=== PATIENT | female | born 1985 | race Caucasian/White ===

== ENCOUNTER 2017-10-29 05:19 | Inpatient (IN) | payer MEDICAID ==
[~2017-10-29] VITALS: Ht 165.1 cm; Wt 105.2 kg
[2017-10-29] MEDS ORDERED: DEXT 5%/LR + PITOCIN 20UNITS/L 1,000 ML IV SCH ×2 (05:36→11:01)
[2017-10-29] MEDS ORDERED: PNV1TABL76 PO (05:39)
[2017-10-29] MEDS ORDERED: METHYLERGONOVINE MALEATE 0.2 MG/ML IM PRN (05:45)
[2017-10-29] MEDS ORDERED: CARBOPROST TROMETHAMINE 250 MCG/ML AMPUL IM PRN (05:45)
[2017-10-29] MEDS ORDERED: NALOXONE HCL 0.4 MG/ML 1ML VIAL IM PRN (05:45)
[2017-10-29 06:32] LABS: BASOPHILS % 0.3 % (0.0-2.0); EOSINOPHILS % 1.5 % (0.0-5.0); HEMATOCRIT. 40.2 % (36.0-48.0); HEMOGLOBIN. 13.7 g/dL (12.0-16.0); LYMPHOCYTES % 28.8 % (20.0-50.0); MEAN CORPUSCULAR HEMOGLOBIN 28.7 pg (28.0-32.0); MEAN CORPUSCULAR VOLUME 84.5 fL (81.0-99.0); MEAN PLATELET VOLUME 9.3 fl (7.4-10.4); MONOCYTES % 6.2 % (2.0-8.0); NEUTROPHILS % 63.2 % (40.0-76.0); PLATELET 209 x1000/uL (130-400); RED BLOOD CELL COUNT 4.76 mill/uL (4.2-5.4); RED CELL DISTRIBUTION WIDTH 14.1 % (11.6-14.6)
[2017-10-29] MEDS: LACTATED RINGERS 1,000 ML IV SCH (06:38)
[2017-10-29 06:40] LABS: *AMPHETAMINES SCREEN URINE NEGATIVE (NEGATIVE); *BARBITURATES SCREEN URINE NEGATIVE (NEGATIVE); *BENZODIAZEPINES SCREEN URINE NEGATIVE (NEGATIVE); *COCAINE SCREEN URINE NEGATIVE (NEGATIVE); CANNABINOID URINE SCREEN NEGATIVE (NEGATIVE); METHADONE URINE SCREEN NEGATIVE (NEGATIVE); OPIATES URINE SCREEN NEGATIVE (NEGATIVE); PHENCYCLIDINE URINE SCREEN NEGATIVE (NEGATIVE)
[2017-10-29 06:56] LABS: INR 0.9; PARTIAL THROMBOPLASTIN TIME 26.6 sec (23.4-31.0); PROTHROMBIN TIME 9.5 sec (9.4-11.6)
[2017-10-29 06:59] LABS: CLARITY URINE SL HAZY (CLEAR); COLOR URINE YELLOW (YELLOW); SPECIFIC GRAVITY URINE 1.017 (1.005-1.030)
[2017-10-29 07:00] LABS: KETONES URINE NEGATIVE (NEGATIVE); NITRITE URINE NEGATIVE (NEGATIVE); OCCULT BLOOD URINE NEGATIVE (NEGATIVE); PROTEIN URINE NEGATIVE (NEGATIVE); UROBILINOGEN URINE 0.2 E.U./dL (0.2-1.0)
[2017-10-29 07:01] LABS: LEUKOCYTE ESTERASE URINE 2+ (NEGATIVE)
[2017-10-29] MEDS ORDERED: OXYTOCIN 10 UNITS/ML 1ML ONE ×2 (07:52→10:15)
[2017-10-29] MEDS ORDERED: ONDANSETRON HCL 4MG/2ML VIAL ONE (07:52)
[2017-10-29] MEDS ORDERED: CEFAZOLIN SODIUM 1000MG/VIAL ONE (07:52)
[2017-10-29] MEDS ORDERED: SODIUM CHLORIDE 0.9% 10ML VIAL ONE (07:52)
[2017-10-29] MEDS ORDERED: EPHEDRINE SULFATE 50MG/ML VIAL ONE (07:53)
[2017-10-29] MEDS ORDERED: FENTANYL CITRATE/PF 50MCG/ML 2ML VIAL ONE (07:58)
[2017-10-29] MEDS ORDERED: MORPHINE SULFATE/PF 1MG/ML 10ML AMP ONE (07:58)
[2017-10-29] MEDS ORDERED: HYDROMORPHONE HCL/PF 2MG/ML CPJ IM PRN (11:15)
[2017-10-29] MEDS ORDERED: ONDANSETRON HCL 4MG/2ML VIAL IV PRN (11:15)
[2017-10-29] MEDS ORDERED: DIPHENHYDRAMINE 50MG/ML VIAL IV PRN (11:15)
[2017-10-29] MEDS ORDERED: RHO(D) IMMUNE GLOBULIN 300 MCG/SYR IM PRN (11:15)
[2017-10-29] MEDS ORDERED: BUTORPHANOL TARTRATE 2 MG/ML VIAL IV PRN (11:15)
[2017-10-29] MEDS ORDERED: IBUPROFEN 400MG TABLET PO PRN (11:15)
[2017-10-29] MEDS ORDERED: NALOXONE HCL 0.4 MG/ML 1ML VIAL IV PRN (11:15)
[2017-10-29 11:34] LABS: RUBELLA IGG 197.8 IU/mL (4.99-10)
[2017-10-29 11:35] LABS: HEPATITIS B SURFACE ANTIGEN NEGATIVE
[2017-10-29] MEDS: KETOROLAC 30MG/ML VIAL IV PRN ×2 (13:14→23:12)
[2017-10-29 14:00] VITALS: BP 114/75
[2017-10-29 14:40] VITALS: BP 123/79
[2017-10-29 19:40] VITALS: BP 113/62
[2017-10-30] VITALS: BP 115/70
[2017-10-30 06:31] LABS: BASOPHILS % 0.5 % (0.0-2.0); EOSINOPHILS % 0.6 % (0.0-5.0); HEMATOCRIT. 33.1 % (36.0-48.0); MEAN CORPUSCULAR VOLUME 84.3 fL (81.0-99.0); MEAN PLATELET VOLUME 9.1 fl (7.4-10.4); MONOCYTES % 7.1 % (2.0-8.0); NEUTROPHILS % 70.8 % (40.0-76.0); PLATELET 176 x1000/uL (130-400); RED BLOOD CELL COUNT 3.93 mill/uL (4.2-5.4); RED CELL DISTRIBUTION WIDTH 14.1 % (11.6-14.6)
[2017-10-30 07:43] VITALS: BP 118/73
[2017-10-30] MEDS: KETOROLAC 30MG/ML VIAL IV PRN (09:18)
[2017-10-30 16:09] VITALS: BP 109/67
[2017-10-30] MEDS: IBUPROFEN 800MG TABLET PO PRN (17:23)
[2017-10-30 19:30] VITALS: BP 126/70
[2017-10-30] MEDS: ACETAMINOPHEN WITH CODEINE 300/30MG TABLET PO PRN (21:38)
[2017-10-30] MEDS: BISACODYL 10MG SUPP PR PRN ×2 (21:39→21:43)
[2017-10-30 23:30] VITALS: BP 125/74
[2017-10-31] MEDS: IBUPROFEN 800MG TABLET PO PRN ×3 (04:04→19:09)
[2017-10-31 07:47] VITALS: BP 123/80
[2017-10-31] MEDS ORDERED: LANOLIN OINT 0.25 GM TUBE TOP PRN (13:15)
[2017-10-31 16:05] VITALS: BP 115/70
[2017-10-31 19:40] VITALS: BP 119/74
[2017-10-31 23:45] VITALS: BP 120/82
[2017-11-01 04:45] VITALS: BP 116/76
[2017-11-01] MEDS: ACETAMINOPHEN WITH CODEINE 300/30MG TABLET PO PRN (04:54)
[2017-11-01 08:58] VITALS: BP 120/62
[2017-11-01 11:41] VITALS: BP 120/62
[2017-11-01] MEDS: IBUPROFEN 800MG TABLET PO PRN (11:41)
== END 2017-11-01 12:10 | disposition home or self-care (01) | DRG 540 ==
LOC: OBSVTOIN 05:19 → L&D 05:19 → 7EST PP/OB 15:51
PROVIDERS: ADMIT Obstetrics & Gynecology; ATTEND Obstetrics & Gynecology
PROC: 0UB70ZZ Excision of Bilateral Fallopian Tubes, Open Approach (ICD-10-PCS; 2017-10-29)
PROC: 10D00Z1 Extraction of Products of Conception, Low, Open Approach (ICD-10-PCS; principal; 2017-10-29 10:40)
DX: O34.211 Maternal care for low transverse scar from previous cesarean delivery (principal); D25.2 Subserosal leiomyoma of uterus; O34.13 Maternal care for benign tumor of corpus uteri, third trimester; Z37.0 Single live birth; Z3A.39 39 weeks gestation of pregnancy; Z30.2 Encounter for sterilization
CPT/HCPCS: 36415; 80305; 81003; 85025; 85610; 85730; 86592; 86703; 86762; 86850; 86900; 86920; 87340; 88302; 88307; A4216; J0171; J0690; J1200; J1885; J2210; J2274; J2405; J2590; J3010; J7120; A4315